=== PATIENT | female | born 1945 | race American Indian/Alaskan Native ===

== ENCOUNTER 2017-03-12 07:02 | Outpatient (CLI) | payer MEDICARE ==
--- NOTE | 2017-03-12 13:05 | Mammography Report ---
The patient had this exam on the date indicated above. It was indicated to us that previous films should be available that would be helpful in providing optimal evaluation with regards to the current study. A final report will be issued, pending receipt of the prior study. CAD was utilized.
== END 2017-03-12 07:03 | disposition home or self-care (01) ==
LOC: MAMMO 07:02
PROVIDERS: ATTEND Family Medicine
DX: Z12.31 Encounter for screening mammogram for malignant neoplasm of breast (principal)
CPT/HCPCS: 77067; G0202

== ENCOUNTER 2017-05-31 10:05 | Outpatient (CLI) | payer MEDICARE ==
--- NOTE | 2017-05-31 11:01 | Cat Scan Report ---
CT scan of abdomen without IV contrast: History: Chronic lower abdominal pain. Findings: Bilateral chronic lung changes. Suspicion of interstitial infiltrates right lower lobe which may be chronic or superimposed acute infiltrates. Mild bronchiectasis. Mild emphysema. Normal liver spleen and pancreas. Single large calculus in the gallbladder. Normal adrenals. Patient status post left nephrectomy. Right kidney and collecting system normal. Stool in colon. No evidence of adenopathy. No bowel distention. Impression: Single large calculus in the gallbladder. Patient status post left nephrectomy. No mass. No evidence of adenopathy.
== END 2017-05-31 10:06 | disposition home or self-care (01) ==
LOC: CT 10:05
PROVIDERS: ATTEND Pediatrics
DX: N18.9 Chronic kidney disease, unspecified (principal); J43.9 Emphysema, unspecified; J47.9 Bronchiectasis, uncomplicated; K80.20 Calculus of gallbladder without cholecystitis without obstruction; Z90.5 Acquired absence of kidney
CPT/HCPCS: 74150

== ENCOUNTER 2018-03-14 11:41 | Outpatient (CLI) | payer MEDICARE ==
--- NOTE | 2018-03-18 11:40 | Mammography Report ---
BILATERAL MAMMOGRAM: FINDINGS: There are scattered fibroglandular densities (approximately 25%-50% glandular). No mass, distortion, suspicious calcification, or skin change is seen. No significant change when compared to prior examination in February 2017. CAD was utilized. IMPRESSION: Negative mammogram. There is no mammographic evidence of malignancy. RECOMMENDATION: Follow-up per ACS guidelines. BI-RADS CATEGORY: 1 = Negative ACR BI-RADS MAMMOGRAPHIC CODES: 0 = Needs additional imaging evaluation; 1 = Negative; 2 = Benign; 3 = Probably benign; 4 = Suspicious; 5 = Malignant; 6 = Known biopsy-proven malignancy COMMENT: 1. Dense breast tissue, i.e., adenosis, fibrocystic changes, etc., may obscure an underlying neoplasm. 2. Approximately 10% of cancers are not detected with mammography. 3. A negative mammography report should not delay biopsy if a clinically suspicious mass is present. COMMENT: Patient follow-up letters are generated in [employer].
== END 2018-03-14 11:42 | disposition home or self-care (01) ==
LOC: MAMMO 11:41
PROVIDERS: ATTEND Family Medicine
DX: Z12.31 Encounter for screening mammogram for malignant neoplasm of breast (principal); N18.9 Chronic kidney disease, unspecified
CPT/HCPCS: 77067

== ENCOUNTER 2019-06-23 14:07 | Outpatient (CLI) | payer MEDICARE ==
--- NOTE | 2019-06-24 13:24 | Mammography Report ---
DIGITAL SCREENING MAMMOGRAM WITH CAD, 06/23/2019 INDICATION: Routine screening mammography. TECHNIQUE: Digital bilateral 2D mammography was obtained in the craniocaudal and mediolateral obliq ue projections. This examination was interpreted with the benefit of Computer-Aided Detection analysi s. COMPARISON: 03/14/2018 FINDINGS: Breast Density: There are scattered areas of fibroglandular density. There is no evidence of dominant mass, suspicious calcifications or architectural distortion in eithe r breast. Bilateral benign calcifications. IMPRESSION: No mammographic evidence of malignancy. Follow up recommendation: Routine yearly BI-RADS Category 2: Benign. A "normal" or negative report should not discourage follow up or biopsy of a clinically significant f inding. A written summary of these findings will be mailed to the patient. The patient will be entered into a mammography reporting system which will generate a reminder letter for the patient's next appointmen t at the appropriate interval. The [employer] recommends yearly mammograms starting at age 40 and continuing as l salvador as a woman is in good health. Breast MRI is recommended for women with an approximate 20-25% or greater lifetime risk of breast cancer, including women with a strong family history of breast or ova olaf cancer or who have been treated for Hodgkin's disease. Signer Name: Scott Russo MD Signed: 06/24/2019 1:19 PM Workstation Name: [id number]
== END 2019-06-23 14:08 | disposition home or self-care (01) ==
LOC: MAMMO 14:07
PROVIDERS: ATTEND Family Medicine
DX: Z12.31 Encounter for screening mammogram for malignant neoplasm of breast (principal)
CPT/HCPCS: 77067

== ENCOUNTER 2020-07-11 10:03 | Outpatient (CLI) | payer MEDICARE ==
--- NOTE | 2020-07-11 15:57 | Mammography Report ---
DIGITAL SCREENING MAMMOGRAM WITH CAD, 07/11/2020 CLINICAL INFORMATION / INDICATION: Routine screening mammography. SCREENING MAMMO TECHNIQUE: Digital bilateral 2D mammography was obtained in the craniocaudal and mediolateral obliqu e projections. This examination was interpreted with the benefit of Computer-Aided Detection analysis . COMPARISON: 06/23/2019, 03/14/2018, 03/12/2017 FINDINGS: Breast Density: There are scattered areas of fibroglandular density. No dominant mass, suspicious calcifications, or architectural distortion in either breast. Coarse bilateral breast calcifications are again noted and appear unchanged. IMPRESSION: No mammographic evidence of malignancy. Follow up recommendation: Routine yearly BI-RADS Category 2: Benign. A "normal" or negative report should not discourage follow up or biopsy of a clinically significant f inding. A written summary of these findings will be mailed to the patient. The patient will be entered into a mammography reporting system which will generate a reminder letter for the patient's next appointmen t at the appropriate interval. The [employer] recommends yearly mammograms starting at age 40 and continuing as l salvador as a woman is in good health. Breast MRI is recommended for women with an approximate 20-25% or greater lifetime risk of breast cancer, including women with a strong family history of breast or ova olaf cancer or who have been treated for Hodgkin's disease. Signer Name: Philomena Guerra MD Signed: 07/11/2020 3:53 PM Workstation Name: [id number]
== END 2020-07-11 10:04 | disposition home or self-care (01) ==
LOC: MAMMO 10:03
PROVIDERS: ATTEND Family Medicine
DX: Z12.31 Encounter for screening mammogram for malignant neoplasm of breast (principal)
CPT/HCPCS: 77067